=== PATIENT | male | born 2000 ===

== ENCOUNTER 2019-04-19 21:03 | Inpatient (IN) | payer SELFPAY ==
[~2019-04-19 21:03] MED LIST: Iopamidol-370 76% 500 ML 1 ML ONE
[2019-04-19 22:48] LABS: #Basophils 0.1 thou/uL (0.0-0.2); #Eosinphils 0.3 thou/uL (0.0-0.7); #Monocytes 1.7 thou/uL (0.11-0.59); %Basophils 0.5 % (0.0-1.0); %Eosinophils 1.5 % (0.0-10.0); %Lymphocytes 10.3 % (28.0-48.0); %Monocytes 8.7 % (0.0-4.0); %Neutrophils 78.9 % (31.0-61.0); Hemoglobin 14.8 g/dL (14.0-18.0); Mean Corpuscular HGB CONC 35.2 g/dL (32.0-36.0); Mean Corpuscular Hemoglobin 33.4 pg (25.0-35.0); Mean Corpuscular Volume 94.8 fL (78.0-98.0); Mean Platelet Volume 8.6 fL (7.4-10.4); Platelet Count 208 thou/uL (130-400); RBC Distribution Width 11.2 % (11.5-14.5); Red Blood Cell (RBC) Count 4.43 mill/uL (4.00-5.20); White Blood Cell (WBC) Count 19.1 thou/uL (4.8-10.8)
[2019-04-19] MEDS ORDERED: Morphine 4 MG/ML VIAL ONE (22:58)
[2019-04-19] MEDS ORDERED: Ondansetron PF 4 MG/2 ML Vial ONE (22:58)
[2019-04-19 23:12] LABS: ALT (SGPT) 13 U/L (8-55); AST (SGOT) 19 U/L (10-45); Albumin 4.5 g/dL (3.5-5.0); Alkaline Phosphatase 91 U/L (50-130); Anion Gap 13 mmol/L (10-20); BUN (Urea Nitrogen) 13 mg/dL (8.4-21.0); Bilirubin, Total 0.4 mg/dL (0.2-1.2); Calc. Creatinine Clearance 0 mL/min (70-130); Calcium 9.7 mg/dL (7.8-10.44); Carbon Dioxide 28 mmol/L (22-29); Chloride 100 mmol/L (98-107); Estimated GFR-MDRD Greater than 90; Globulin 3.2 g/dL (2.4-3.5); Glucose 101 mg/dL (70-105); Lipase 6 U/L (8-78); Potassium 3.6 mmol/L (3.5-5.1); Protein, Total 7.7 g/dL (6.0-8.3); Sodium 137 mmol/L (136-145)
[2019-04-19 23:20] LABS: Bilirubin Negative (Negative); Blood, Urine Negative (Negative); Clarity Clear (Clear); Glucose, Urine (Dipstick) Normal (Negative); Leukocyte Negative Leu/uL (Negative); Nitrite Negative (Negative); Protein, Urine (Dipstick) Negative (Neg-Trace); Urobilinogen Normal mg/dL (Less than 2)
--- NOTE | 2019-04-19 23:24 | CT ---
CT Abdomen Pelvis W Con History: Right lower quadrant pain Comparison: None. Findings: Lung bases are clear. No pericardial effusion. The aortoiliac contour is nonaneurysmal. Mild dilatation of the appendix with periappendiceal inflamm ation. No evidence of rupture. The appendix travels along the posterior margin of the cecum into the pelvis. No hydronephrosis. Aortoiliac contour is normal. No acute osseous abnormality. The liver, spleen, pancreas, adrenal glands are unremarkable. Impression: Uncomplicated acute appendicitis as described.
[2019-04-20] MEDS ORDERED: Piperacillin/Tazobactam 3.375 GM VIAL ONE (00:09)
[2019-04-20] MEDS ORDERED: Morphine 2 MG/ML SYRINGE SLOW IVP PRN ×2 (01:39→10:18)
[2019-04-20] MEDS ORDERED: Morphine 4 MG/ML VIAL SLOW IVP PRN ×2 (01:39→10:18)
[2019-04-20] MEDS ORDERED: Ondansetron ODT 4 MG TAB SL PRN (01:40)
[2019-04-20] MEDS ORDERED: Ondansetron PF 4 MG/2 ML Vial IVP PRN ×2 (01:40→10:18)
[2019-04-20 02:03] VITALS: BMI 28.3
[2019-04-20] MEDS: Lactated Ringer's 1,000 ML IV SCH ×2 (02:45→09:45)
[2019-04-20] MEDS ORDERED: Piperacillin/Tazobactam 3.375 GM in Sodium Chloride 0.9% 100 ML IVPB SCH ×2 (06:00→12:00)
[2019-04-20] MEDS ORDERED: Fentanyl 100 MCG/2 ML VIAL ONE (08:39)
[2019-04-20] MEDS ORDERED: Midazolam HCl 2 mg/2 ml Vial ONE (08:39)
[2019-04-20] MEDS ORDERED: Bupivacaine PF 0.5% 30 ML VIAL ONE (09:13)
[2019-04-20] MEDS ORDERED: Ketorolac Tromethamine 30 MG/ML VIAL ONE (10:03)
[2019-04-20] MEDS ORDERED: Dexamethasone 20 MG/5 ML VIAL ONE (10:03)
[2019-04-20] MEDS ORDERED: Succinylcholine Chloride 20 MG/ML 10 ml SYRINGE FS ONE (10:03)
[2019-04-20] MEDS ORDERED: PROPOFOL 200 MG/20 ML VIAL ONE (10:03)
[2019-04-20] MEDS ORDERED: Ondansetron PF 4 MG/2 ML Vial ONE (10:03)
[2019-04-20] MEDS ORDERED: Lidocaine 1% PF 5 ML VIAL ONE (10:03)
[2019-04-20] MEDS ORDERED: Ondansetron HCl/PF 4 MG/2 ML Vial IVP PRN (10:07)
[2019-04-20] MEDS ORDERED: Promethazine HCl 25 MG/ML VIAL SLOW IVP PRN (10:07)
[2019-04-20] MEDS ORDERED: Promethazine HCl 25 MG/ML VIAL IM PRN ×2 (10:07→10:18)
[2019-04-20] MEDS ORDERED: Dextrose 5% in Water 1,000 ML IV PRN (10:18)
[2019-04-20] MEDS ORDERED: hydrALAZINE 20 MG/ML VIAL SLOW IVP PRN (10:18)
[2019-04-20] MEDS ORDERED: Dextrose 50 % In Water 50 ML SYRINGE IV PRN (10:18)
[2019-04-20] MEDS ORDERED: HYDROcodone/Acetaminophen 7.5/325 mg Tablet PO PRN (10:18)
[2019-04-20] MEDS ORDERED: Sodium Chloride 0.9% 1,000 ML IV SCH (10:18)
[2019-04-20 14:02] VITALS: BP 117/71; TEMP 97.5
[2019-04-20] MEDS ORDERED: Famotidine/PF 20 mg/2ml Vial SLOW IVP SCH (21:00)
[2019-04-20] MEDS ORDERED: Famotidine 20 MG TAB PO SCH (21:00)
--- NOTE | 2019-04-21 14:59 | OP ---
DATE OF PROCEDURE: 04/20/2019 PREOPERATIVE DIAGNOSIS: Acute appendicitis. POSTOPERATIVE DIAGNOSIS: Acute appendicitis. PROCEDURE PERFORMED: Laparoscopic appendectomy. ANESTHESIA: General. ESTIMATED BLOOD LOSS: Minimal. COMPLICATIONS: None. SPECIMEN: Appendix. FINDINGS: Appendicitis. TECHNIQUE: The patient was taken to the operating room and laid supine on the operating room table after a general anesthetic was obtained, a Pedro was placed. The abdomen was shaved, prepped, and draped in a sterile fashion. A curved incision was made below the umbilicus, cautery dissected down to and score the fascia. Abdominal cavity entered bluntly using a Nova clamp. Holding stitch of PDS was placed on each side the fascia. Lashawn trocar was placed. High-flow pneumoperitoneum obtained. A suprapubic 5 mm port as well as a left lower quadrant port were placed under direct visualization. The cecum was rolled over to reveal acute appendicitis. A window was made at the base of appendix and the mesoappendix and a laparoscopic stapler was fired across the base of the appendix and the mesoappendix. The appendix was placed in an EndoCatch bag and brought out through the Lashawn. There was no bleeding along the staple lines. There was no injury to any intraabdominal structures. Right lower quadrant and pelvis area irrigated using sterile solution until returns were clear. All port sites were infiltrated using local anesthetic. All ports were removed under camera visualization. Pneumoperitoneum was let down. PDS was used to close the fascial defect below the umbilicus. All incisions were irrigated, closing with 4-0 Monocryl and Dermabond. Patient was sent to Recovery in stable condition. All instrument counts, needle counts, and lap counts were correct. Job ID: [id number]
--- NOTE | 2019-05-06 01:33 | HP ---
CHIEF COMPLAINT: Abdominal pain. HISTORY OF PRESENT ILLNESS: This is a 18-year-old male, who presents with pain in his right lower abdomen described as sharp 8/10, has been present for 24 hours, associated with nausea. No vomiting. No change in stools. No chronic abdominal pain. CT scan reveals acute appendicitis. MEDICAL HISTORY: He denies. PAST SURGICAL HISTORY: He denies. MEDICATIONS: Medicines taken daily, none. ALLERGIES: NO KNOWN DRUG ALLERGIES. SOCIAL HISTORY: No smoking, alcohol, or other drugs. REVIEW OF SYSTEMS: Ten-system review of systems is otherwise negative unless described above. PHYSICAL EXAMINATION: HEENT: Sclerae anicteric. Oropharynx clear. NECK: No lymphadenopathy. CHEST: Clear. HEART: Regular rate and rhythm. ABDOMEN: Soft, tender in the right lower quadrant with localized guarding. No rebound. No abdominal hernias. EXTREMITIES: No ischemia or edema to extremities. DIAGNOSTIC DATA: CT shows acute appendicitis. ASSESSMENT: Acute appendicitis. PLAN: Laparoscopic appendectomy. Risks, benefits, and alternatives were discussed. He gives consent and we will do this today. Job ID: [id number]
== END 2019-04-20 11:45 | disposition home or self-care (01) | DRG 343 ==
LOC: ERS 21:03 → SURG A 04-20
PROVIDERS: ADMIT Surgery; ATTEND Surgery
PROC: 0DTJ4ZZ Resection of Appendix, Percutaneous Endoscopic Approach (ICD-10-PCS; principal; 2019-04-20)
DX: K35.80 Unspecified acute appendicitis (principal); F17.220 Nicotine dependence, chewing tobacco, uncomplicated
CPT/HCPCS: 36415; 74177; 80053; 81003; 83690; 85025; 88304; 96361; 96365; 96375; J1100; J1885; J2001; J2250; J2270; J2405; J2543; J2704; J3010; J3490; Q9967; S0020